=== PATIENT | male | born 1970 | race Caucasian/White ===

== ENCOUNTER 2019-10-23 16:14 | Emergency (ER) | payer SELFPAY ==
[~2019-10-23 16:14] MED LIST: Iopamidol-370 76% 500 ML 1 ML ONE
[2019-10-23] MEDS ORDERED: Morphine 4 MG/ML VIAL ONE (16:32)
[2019-10-23] MEDS ORDERED: Ondansetron PF 4 MG/2 ML Vial ONE (16:32)
[2019-10-23 16:48] LABS: #Basophils 0.1 thou/uL (0.0-0.2); #Eosinphils 0.2 thou/uL (0.0-0.7); #Lymphocytes 2.6 thou/uL (1.20-3.40); #Monocytes 0.6 thou/uL (0.11-0.59); #Neutrophils 4.2 thou/uL (1.40-6.50); %Basophils 1.1 % (0.0-1.0); %Eosinophils 2.6 % (0.0-10.0); %Lymphocytes 33.8 % (21.0-51.0); %Monocytes 7.4 % (0.0-10.0); %Neutrophils 55.1 % (42.0-75.0); Mean Corpuscular HGB CONC 34.7 g/dL (32.0-36.0); Mean Corpuscular Hemoglobin 30.9 pg (27.0-31.0); Mean Corpuscular Volume 89.1 fL (78.0-98.0); Platelet Count 359 thou/uL (130-400); RBC Distribution Width 12.1 % (11.5-14.5); Red Blood Cell (RBC) Count 4.84 mill/uL (4.70-6.10); White Blood Cell (WBC) Count 7.6 thou/uL (4.8-10.8)
--- NOTE | 2019-10-23 16:48 | RAD ---
RADIOGRAPH CHEST 1 VIEW: DATE: 10/23/2019 HISTORY: 48-year-old male with chest pain FINDINGS: There are no airspace densities, pulmonary edema, pneumothorax, or cardiomegaly. The lateral costophr enic angles are sharp. IMPRESSION: No acute cardiopulmonary findings.
[2019-10-23 16:50] LABS: INR-International Normal Ratio 0.9; PTT 24.9 SEC (22.9-36.1)
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
[2019-10-23 17:08] LABS: ALT (SGPT) 33 U/L (8-55); AST (SGOT) 37 U/L (5-34); Albumin 4.5 g/dL (3.5-5.0); Alcohol Less than 10 mg/dL (Less than 10); Alkaline Phosphatase 55 U/L (40-110); Anion Gap 12 mmol/L (10-20); BUN (Urea Nitrogen) 19 mg/dL (8.9-20.6); Bilirubin, Total 0.6 mg/dL (0.2-1.2); Calc. Creatinine Clearance 0 mL/min (70-130); Calcium 9.4 mg/dL (7.8-10.44); Carbon Dioxide 26 mmol/L (22-29); Chloride 105 mmol/L (98-107); Estimated GFR-MDRD 48; Globulin 2.9 g/dL (2.4-3.5); Glucose 123 mg/dL (70-105); Potassium 3.8 mmol/L (3.5-5.1); Protein, Total 7.4 g/dL (6.0-8.3); Sodium 139 mmol/L (136-145)
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
[2019-10-23] MEDS ORDERED: Adacel (T-DAP) 0.5 ML SYRINGE ONE (19:15)
== END 2019-10-23 19:35 | disposition home or self-care (01) ==
LOC: ERS 16:14
DX: S06.0X0A Concussion without loss of consciousness, initial encounter (principal); S43.51XA Sprain of right acromioclavicular joint, initial encounter; S30.811A Abrasion of abdominal wall, initial encounter; S80.812A Abrasion, left lower leg, initial encounter; R91.1 Solitary pulmonary nodule; Z23 Encounter for immunization; V28.4XXA Motorcycle driver injured in noncollision transport accident in traffic accident, initial encounter
CPT/HCPCS: 36415; 70450; 71045; 71260; 72125; 74177; 80053; 80307; 83605; 83690; 85025; 85610; 85730; 86850; 86900; 86901; 90471; 90715; 93005; 96374; 96375; J2270; J2405; Q9967

== ENCOUNTER 2022-10-16 19:43 | Emergency (ER) | payer SELFPAY ==
[2022-10-16] MEDS ORDERED: Fluorescein Opthalmic Strip ONE (20:05)
[2022-10-16] MEDS ORDERED: Proparacaine 0.5% Opth 15 ML BOT ONE (20:06)
== END 2022-10-16 21:25 | disposition home or self-care (01) ==
LOC: ERS 19:43
DX: S05.02XA Injury of conjunctiva and corneal abrasion without foreign body, left eye, initial encounter (principal); T15.92XA Foreign body on external eye, part unspecified, left eye, initial encounter; F17.210 Nicotine dependence, cigarettes, uncomplicated; I10 Essential (primary) hypertension; X58.XXXA Exposure to other specified factors, initial encounter
CPT/HCPCS: 99283